=== PATIENT | male | born 1960 | race Two or more races ===

== ENCOUNTER 2019-10-14 19:20 | Emergency (ER) | payer MEDICAID ==
[~2019-10-14] VITALS: Ht 172.7 cm; Wt 70.0 kg
[2019-10-14] MEDS ORDERED: CEFAZOLIN 1000MG PREMIX 50 ML IV ONE (20:45)
[2019-10-14] MEDS ORDERED: TETANUS, DIPHTHERIA, PERTUSSIS VAC/PF 0.5ML (>7YR OLD) IM ONE (20:45)
[2019-10-14] MEDS ORDERED: MORPHINE SULFATE 4 MG/ML CPJ (NOT FOR IM USE) IV ONE (20:45)
[2019-10-14 22:42] VITALS: BP 125/79
== END 2019-10-14 22:43 | disposition home or self-care (01) ==
LOC: ER 19:20
DX: S98.911A Complete traumatic amputation of right foot, level unspecified, initial encounter (principal); W18.39XA Other fall on same level, initial encounter; Y93.89 Activity, other specified; Y92.89 Other specified places as the place of occurrence of the external cause; Y99.8 Other external cause status; F17.290 Nicotine dependence, other tobacco product, uncomplicated
CPT/HCPCS: 73630; 90471; 90715; 96365; 96375; 99284; J0690; J2270; Z7610